=== PATIENT | male | born 1995 | race Caucasian/White ===

== ENCOUNTER → 2022-03-19 16:45 | Outpatient (REF) | payer OTHER, SELFPAY ==
--- NOTE | 2022-03-19 16:50 | CA_ITS ---
Transthoracic Echocardiogram Patient (Last, First, Middle): Ramos Bernstein, Gender: Male Date of : 1995 Age: 26 Procedure Date: 03/19/2022 Procedure Type: Transthoracic Echocardiogram Location: OP Height: 177.8 cm Weight: 58.97 kg BSA: 1.74 m2 Heart Rate: bpm BP: 100 / 65 mmHg Stonework Supervisor: YR/TO Referring MD: Raphael Leiva MD Symptoms: [id number] EXACAVATUM Study Quality: Fair/Technically difficult apical window ECG Rhythm: Sinus Conclusions: - The left ventricular systolic function is low normal. The visually estimated ejection fraction is between 50-55%. - No obvious valvular pathology seen on this study. Findings Left Ventricle Normal left ventricular cavity size. There is normal left ventricular wall thickness. The left ventricular systolic function is low normal. The visually estimated ejection fraction is between 50-55%. Regional wall motion abnormalities can not be excluded due to suboptimal endocardial definition. Diastolic function is normal for age. Right Ventricle Normal right ventricular cavity size and systolic function. Atria Both atria are normal in size. Aortic Valve There is a normal trileaflet aortic valve. There is no aortic valve stenosis. There is no aortic valve regurgitation. Mitral Valve The mitral valve appears normal. There is no mitral valve regurgitation. There is no mitral valve stenosis. Pulmonic Valve The pulmonic valve is likely normal. Tricuspid Valve Normal tricuspid valve structure. There is trace tricuspid valve regurgitation. Tricuspid regurgitation envelope is inadequate for calculation of right ventricular systolic pressure. Great Vessels The aortic annulus, sinuses of valsalva, and asc aorta are normal in size. Venous The inferior vena cava is mildly dilated and collapses greater than 50% with inspiration. Pericardium/Pleural There is no evidence of pericardial effusion. Prior Study Comparison No prior study available for comparison. Recommendations, Care & Conclusions No obvious valvular pathology seen on this study. Measurements 2D Linear Measurements IVSd: 0.52 0.6-0.9/0.6-1.0 cm LVIDd: 4.40 3.9-5.3/4.2-5.9 cm LVIDd Index: 2.53 2.4-3.2/2.2-3.1 cm/m2 LVIDs: 2.60 2.0-3.6 cm LVPWd: 0.60 0.7-1.1 cm LA Diam: 2.50 2.7-3.8/3.0-4.0 cm LAIDs Index: 1.44 1.5-2.3 cm/m2 LV Mass: 86.62 67-162/88-224 g LV Mass Index: 49.78 43-95/49-115 g/m2 LVOT Diam: 2.00 3.0+(-)1.3 cm Mitral Valve MV Pk E: 0.89 MV PK A: 0.46 MV Decel Time: 140.00 E/A: 1.90 E'Lateral: 14.70 E'Medial: 13.70 E/E' Med: 6.50 E/E' Lat: 6.10 PHT: 41.00 MVA PHT: 5.37 Decel Burke: 6.37 Aortic Valve AoV Pk Sarbjit: 0.89 AoV Mn Sarbjit: 0.64 AoV VTI: 0.19 AoV Pk Grad: 3.00 Aov Mn Grad: 2.00 LUCI Cont.VTI: 3.07 LVOT LVOT Pk Sarbjit: 0.76 LVOT Mn Sarbjit: 0.59 LVOT VTI: 0.18 LVOT Pk Grad: 2.00 LVOT Mn Grad: 1.00 LVOT Diam: 2.00 LVOT Area: 3.14 Diastolic Function MV Pk E: 0.89 MV Pk A: 0.46 E/A: 1.90 E'Medial: 13.70 E/E' Med: 6.50 E' Laterial: 14.70 E/E' Lat: 6.10 Right Ventricle TAPSE (mm): 22.00 TVS' Sarbjit: 12.00 Tricuspid Valve RA Press: 8.00 Great Vessels Aorta Sinus of Valsalva: 3.23 2.0-3.[address] Ridge: 2.43 1.7-3.4 cm Ao Asc: 2.50 2.1-3.4 cm Updated in Other Vendor System with Status of Final Sree Montes MD electronically signed on 03/20/2022 1:40:56 PM with status of Final
== END ==
LOC: HO.CARD 16:45
PROVIDERS: Visit Provider Internal Medicine
DX: Q67.6 Pectus excavatum (principal)
CPT/HCPCS: 93306